=== PATIENT | female | born 1970 | race Two or more races ===

== ENCOUNTER 2023-10-24 10:11 | Emergency (ER) | payer MEDICAID, OTHER ==
[~2023-10-24] VITALS: Ht 165.1 cm; Wt 96.1 kg
[2023-10-24 11:15] VITALS: BP 163/89; PULSE 59; RESP 17; TEMP 98.2; O2SAT 91
[2023-10-24] MEDS: traMADol HCL 50 MG TAB PO ONE (11:24)
[2023-10-24] MEDS: HYDROcodone-ACET 10/325MG TAB PO ONE (12:50)
== END 2023-10-24 17:14 | disposition home or self-care (01) ==
LOC: ER 10:11
DX: G44.209 Tension-type headache, unspecified, not intractable (principal); I16.0 Hypertensive urgency; I25.2 Old myocardial infarction; E78.5 Hyperlipidemia, unspecified; Z86.73 Personal history of transient ischemic attack (TIA), and cerebral infarction without residual deficits
CPT/HCPCS: 70450